=== PATIENT | female | born 1975 | race Caucasian/White ===

== ENCOUNTER 2017-06-08 08:18 | Emergency (ER) | payer OTHER ==
[~2017-06-08 08:18] MED LIST: ASPI-COR81 M1 PO; AUGMENTIN 875-875 MG PO; CALAN,ISOPTIN80 MG; CLARITIN10 MG PO; DEXALONE30 MG; EFFEXOR XR75 M1 PO; Lortab 5/500 501 TAB PO; Motrin,Rufen800 MG PO; PERCOCET 325 MG1 TA5 PO; PROTONIX20 MG PO; PROVENTIL0.09 MG/AC IH; ULTRAM50 MG PO; VICODIN 5/500 505 MG PO; XANAX0.5 MG PO; ZITHROMAX Z PA250 MG PO
[2017-06-08 09:01] LABS: BASO # 0.1 10*3/uL (0.0-0.1); BASO % 0.4 % (0.0-1.0); EOS # 0.2 10*3/uL (0.0-0.4); EOS % 1.5 % (1.0-4.0); HEMATOCRIT 38.9 % (37.0-47.0); HEMOGLOBIN 12.5 g/dl (12.0-16.0); LYMPH # 2.3 10*3/uL (1.3-4.4); LYMPH % 17.1 % (27.0-41.0); MEAN CORPUSCULAR HGB 28.9 pg (27.0-31.0); MEAN CORPUSCULAR HGB CONC 32.1 g/dl (33.0-37.0); MEAN PLATELET VOLUME 9.5 fl (9.6-12.3); MONO # 0.7 10*3/uL (0.1-1.0); MONO % 5.1 % (3.0-9.0); NEUT # 10.1 10*3/uL (2.3-7.9); NEUT % 74.6 % (47.0-73.0); PLATELET COUNT AUTOMATED 280 10*3/uL (130-400); RED BLOOD COUNT 4.32 10*6/uL (4.10-5.10); RED CELL DISTRI WIDTH 14.1 % (0-14.5); WHITE BLOOD COUNT 13.6 10*3/uL (4.8-10.8)
[2017-06-08 09:13] LABS: ACT PARTIAL THROMBO TIME 23.3 SECONDS (20.8-31.5)
[2017-06-08 09:20] VITALS: BP 137/70
[2017-06-08 09:23] LABS: ALKALINE PHOSPHATASE 79 U/L (45-117); BUN 11 mg/dl (7-24); CHLORIDE 104 mmol/L (98-107); CREATININE 0.72 mg/dL (0.55-1.02); POTASSIUM 4.7 mmol/L (3.5-5.1); SGOT/AST 47 IU/L (3-35); SGPT/ALT 44 U/L (12-78); SODIUM 139 mmol/L (136-145); TOTAL PROTEIN 7.5 gm/dL (6.4-8.2)
[2017-06-08 09:33] LABS: BETA-HCG, QUANT < 1.0 mIU/mL (1-3); ETHYL ALCOHOL < 3.0 mg/dl (<3); TROPONIN I < 0.015 ng/ml (<0.045)
== END 2017-06-08 09:46 | disposition short-term general hospital (02) ==
LOC: ED 08:18
PROVIDERS: Internal Medicine
DX: I63.9 Cerebral infarction, unspecified (principal); E11.9 Type 2 diabetes mellitus without complications; Z79.899 Other long term (current) drug therapy; Z79.82 Long term (current) use of aspirin; Z88.6 Allergy status to analgesic agent; Z88.5 Allergy status to narcotic agent

== ENCOUNTER → 2017-09-09 | Outpatient (CLI) | payer OTHER ==
[2017-09-09 12:09] LABS: HEMATOCRIT 39.3 % (37.0-47.0); HEMOGLOBIN 12.6 g/dl (12.0-16.0); MEAN CELL VOLUME 89.7 fl (81.0-99.0); MEAN CORPUSCULAR HGB 28.8 pg (27.0-31.0); MEAN CORPUSCULAR HGB CONC 32.1 g/dl (33.0-37.0); MEAN PLATELET VOLUME 9.5 fl (9.6-12.3); RED BLOOD COUNT 4.38 10*6/uL (4.10-5.10); RED CELL DISTRI WIDTH 14.1 % (0-14.5); WHITE BLOOD COUNT 11.7 10*3/uL (4.8-10.8)
[2017-09-09 12:34] LABS: BUN 11 mg/dl (7-24); CHLORIDE 102 mmol/L (98-107); CREATININE 0.71 mg/dL (0.55-1.02); POTASSIUM 4.2 mmol/L (3.5-5.1); SODIUM 140 mmol/L (136-145)
[2017-09-09 12:36] LABS: ACT PARTIAL THROMBO TIME 23.2 SECONDS (20.8-31.5)
[2017-09-09 12:44] LABS: BILIRUBIN NEGATIVE (NEGATIVE); BLOOD NEGATIVE (NEGATIVE); CLARITY CLEAR (CLEAR); COLOR YELLOW (YELLOW); GLUCOSE NEGATIVE (NEGATIVE); KETONE NEGATIVE (NEGATIVE); LEUKO ESTERASE NEGATIVE (NEGATIVE); NITRITE NEGATIVE (NEGATIVE); SPECIFIC GRAVITY 1.015 (1.005-1.030); UROBILINOGEN 0.2 E.U./dl (0.2-1.0)
[2017-09-09 13:01] LABS: BACTERIA 1+; EPITHELIAL CELLS 21-30; MUCOUS 2+; RBC 0-2 rbc/hpf (0-2)
== END | disposition home or self-care (01) ==
LOC: LAB 11:15
PROVIDERS: Internal Medicine Interventional Cardiology
DX: Z01.818 Encounter for other preprocedural examination (principal); I63.9 Cerebral infarction, unspecified; Q21.1 Atrial septal defect

== ENCOUNTER 2017-10-14 11:48 | Emergency (ER) | payer OTHER ==
[~2017-10-14] VITALS: Ht 167.6 cm; Wt 118.8 kg
[2017-10-14 12:25] VITALS: BP 124/71
[2017-10-14 12:33] LABS: BASO # 0.1 10*3/uL (0.0-0.1); BASO % 0.6 % (0.0-1.0); EOS # 0.2 10*3/uL (0.0-0.4); EOS % 1.6 % (1.0-4.0); HEMOGLOBIN 13.6 g/dl (12.0-16.0); LYMPH # 2.7 10*3/uL (1.3-4.4); LYMPH % 18.9 % (27.0-41.0); MEAN CELL VOLUME 88.6 fl (81.0-99.0); MEAN CORPUSCULAR HGB 28.7 pg (27.0-31.0); MEAN CORPUSCULAR HGB CONC 32.4 g/dl (33.0-37.0); MEAN PLATELET VOLUME 9.4 fl (9.6-12.3); MONO # 0.6 10*3/uL (0.1-1.0); MONO % 4.5 % (3.0-9.0); NEUT # 10.5 10*3/uL (2.3-7.9); NEUT % 72.9 % (47.0-73.0); PLATELET COUNT AUTOMATED 315 10*3/uL (130-400); RED BLOOD COUNT 4.74 10*6/uL (4.10-5.10); RED CELL DISTRI WIDTH 13.8 % (0-14.5); WHITE BLOOD COUNT 14.3 10*3/uL (4.8-10.8)
[2017-10-14] MEDS ORDERED: NYSTATIN CREAM15 GM T (12:43)
== END 2017-10-14 12:48 | disposition home or self-care (01) ==
LOC: ED 11:48
PROVIDERS: Physician Assistant
DX: L30.4 Erythema intertrigo (principal); Z79.899 Other long term (current) drug therapy; Z79.82 Long term (current) use of aspirin; Z88.6 Allergy status to analgesic agent; Z88.5 Allergy status to narcotic agent; Z88.8 Allergy status to other drugs, medicaments and biological substances

== ENCOUNTER 2019-06-10 09:38 | Emergency (ER) | payer BC ==
[~2019-06-10] VITALS: Ht 167.6 cm; Wt 108.0 kg
[~2019-06-10 09:38] MED LIST changes: +NYSTATIN CREAM15 GM T
[2019-06-10 09:41] VITALS: BP 149/75
[2019-06-10] MEDS ORDERED: XOPENEX HFA15 GM PO (10:54)
[2019-06-10] MEDS ORDERED: PREDNISONE50 MG PO (10:54)
== END 2019-06-10 11:04 | disposition home or self-care (01) ==
LOC: ED 09:38
DX: J45.901 Unspecified asthma with (acute) exacerbation (principal); Z79.899 Other long term (current) drug therapy; Z79.82 Long term (current) use of aspirin; Z88.5 Allergy status to narcotic agent; Z88.6 Allergy status to analgesic agent

== ENCOUNTER 2019-06-13 16:20 | Inpatient (IN) | payer BC ==
[~2019-06-13] VITALS: Ht 167.6 cm; Wt 112.1 kg
[~2019-06-13 16:20] MED LIST changes: +PREDNISONE50 MG PO; +XOPENEX HFA15 GM PO
[2019-06-13 16:21] VITALS: BP 167/79
[2019-06-13 16:49] LABS: BASO % 0.2 % (0.0-1.0); EOS # 0.1 10*3/uL (0.0-0.4); EOS % 0.7 % (1.0-4.0); HEMATOCRIT 36.1 % (37.0-47.0); HEMOGLOBIN 11.5 g/dl (12.0-16.0); LYMPH # 1.2 10*3/uL (1.3-4.4); LYMPH % 9.1 % (27.0-41.0); MEAN CELL VOLUME 92.6 fl (81.0-99.0); MEAN CORPUSCULAR HGB 29.5 pg (27.0-31.0); MEAN CORPUSCULAR HGB CONC 31.9 g/dl (33.0-37.0); MEAN PLATELET VOLUME 9.6 fl (9.6-12.3); MONO # 0.5 10*3/uL (0.1-1.0); NEUT # 11.2 10*3/uL (2.3-7.9); NEUT % 84.4 % (47.0-73.0); PLATELET COUNT AUTOMATED 240 10*3/uL (130-400); RED CELL DISTRI WIDTH 13.5 % (0-14.5); WHITE BLOOD COUNT 13.2 10*3/uL (4.8-10.8)
[2019-06-13 17:07] LABS: ALBUMIN 3.3 gm/dl (3.1-4.5); ALKALINE PHOSPHATASE 114 U/L (45-117); BUN 18 mg/dl (7-24); CHLORIDE 106 mmol/L (98-107); CREATININE 0.85 mg/dL (0.55-1.02); LIPASE 87 U/L (73-393); POTASSIUM 3.6 mmol/L (3.5-5.1); SGOT/AST 142 IU/L (3-35); SGPT/ALT 87 U/L (12-78); SODIUM 138 mmol/L (136-145); TOTAL PROTEIN 7.2 gm/dL (6.4-8.2)
[2019-06-13 17:09] LABS: TROPONIN I < 0.015 ng/ml (<0.045)
[2019-06-13] MEDS ORDERED: SINGULAIR10 M1 PO (18:31)
[2019-06-13 18:40] VITALS: BP 158/70
[2019-06-13] MEDS ORDERED: XOPENEX HFA15 GM INH (18:52)
[2019-06-13] MEDS ORDERED: BREO ELLIPTA 21 EACH INH (18:53)
[2019-06-13 18:55] VITALS: BP 152/72
--- NOTE | 2019-06-13 18:55 | NUR ---
A 44, admitted to 4E, under the services of DEANNA Sanchez DO with a diagnosis of SEPSIS AND PNEUMONITIS. Chief complaint is COUGH X3 DAYS. Patient arrived via stretcher from ER. Monitor applied. Initial assessment completed. Vital signs taken and recorded. DEANNA SANCHEZ DO notified of admission to the unit. Orders received. See assessment for past medical history, medications and allergies. Patient and/or family oriented to unit. [facility] visitation policy reviewed. Clothing/patient valuable form completed. RADHA CHILDS
[2019-06-13] MEDS ORDERED: IPRATROPIU0.2 MG/1 M NEB (19:01)
[2019-06-13] MEDS ORDERED: ALEVE220 M1 PO (19:05)
[2019-06-13 19:17] VITALS: BP 152/72
--- NOTE | 2019-06-13 19:17 | NUR ---
UNABLE TO COMPLETE ADMISSION ASSESSMENT, PASSED ON TO NEXT RN.
[2019-06-13 20:00] VITALS: BP 137/69
--- NOTE | 2019-06-13 20:00 | NUR ---
Pt instructed on use of flutter valve. Encouraged self use. 94% on 3L NC.
--- NOTE | 2019-06-13 20:44 | NUR ---
PATIENT IS AAOX3 RESTING IN BED WITH EASY AND REGULAR RESPERS ON 4L O2 VIA NC. ASSESSMENT IS COMPLETE WITH NO S/S OF DISTRESS OR C/O NOTED AT THIS TIME. BED IS LOW, LOCKED, AND CALL LIGHT IS WITHIN REACH. CALL PLACED TO DR. CEE REGARDING MED REC. WILL CONTINUE TO MONITOR, SEE SHIFT ASSESSMENT.
[2019-06-14] VITALS: BP 138/75
--- NOTE | 2019-06-14 04:49 | NUR ---
24 HR. CHART CHECK COMPLETE.
--- NOTE | 2019-06-14 06:12 | NUR ---
PATIENT RESTED WITH NO S/S OF DISTRESS NOTED ON ROOM AIR ALL NIGHT. CALL LIGHT IS WITHIN REACH.
--- NOTE | 2019-06-14 06:17 | NUR ---
CONSULT COMPLETE WITH DR. PRUITT, NO NEW ORDERS RECIEVED AT THIS TIME.
[2019-06-14 06:52] LABS: BASO % 0.2 % (0.0-1.0); HEMATOCRIT 33.8 % (37.0-47.0); HEMOGLOBIN 10.8 g/dl (12.0-16.0); LYMPH # 1.1 10*3/uL (1.3-4.4); LYMPH % 10.3 % (27.0-41.0); MEAN CELL VOLUME 91.6 fl (81.0-99.0); MEAN CORPUSCULAR HGB 29.3 pg (27.0-31.0); MEAN PLATELET VOLUME 9.9 fl (9.6-12.3); MONO # 0.2 10*3/uL (0.1-1.0); MONO % 1.8 % (3.0-9.0); NEUT # 8.7 10*3/uL (2.3-7.9); NEUT % 85.4 % (47.0-73.0); PLATELET COUNT AUTOMATED 232 10*3/uL (130-400); RED BLOOD COUNT 3.69 10*6/uL (4.10-5.10); RED CELL DISTRI WIDTH 13.5 % (0-14.5); WHITE BLOOD COUNT 10.2 10*3/uL (4.8-10.8)
[2019-06-14 07:13] LABS: ALBUMIN 3.1 gm/dl (3.1-4.5); BUN 16 mg/dl (7-24); CHLORIDE 108 mmol/L (98-107); CHOLESTEROL 221 mg/dL (<200); CREATININE 0.79 mg/dL (0.55-1.02); POTASSIUM 3.9 mmol/L (3.5-5.1); SGOT/AST 78 IU/L (3-35); SGPT/ALT 85 U/L (12-78); SODIUM 139 mmol/L (136-145)
[2019-06-14 07:15] LABS: ACT PARTIAL THROMBO TIME 25.1 SECONDS (20.0-32.1); INTERNATIONAL NORM RATIO 1.1 (2.0-3.5)
[2019-06-14 07:21] LABS: ALKALINE PHOSPHATASE 99 U/L (45-117); HDL CHOLESTEROL 31 mg/dl (40-60); LDL CHOLESTEROL 159 mg/dL (9-159); THYROID STIM HORMONE (HS) 0.571 uIU/ml (0.358-4.75); TOTAL PROTEIN 7.1 gm/dL (6.4-8.2); TRIGLYCERIDES 154 mg/dl (<150); VLDL CHOLESTEROL 31 mg/dL (6-40)
[2019-06-14 08:00] VITALS: BP 134/61
--- NOTE | 2019-06-14 08:59 | NUR ---
DR PRUITT ROUNDED AND SEEN PT.
--- NOTE | 2019-06-14 09:00 | NUR ---
Driver License Examiner in to talk to patient. Patient states lives at home with . There are few steps in the home. Physician: viji victoria [facility]acy: [facility]: none Patient's level of ADLs: INDEPENDENT Patient has working utilities: all working DME: none Follow-up physician's appointment after d/c: will be made by hospitalist nurse director upon discharge Does patient want to access PORTAL?: no Discharge plan discussed with patient, she lives at home with , is independent in adls and ambulation, she states she will return home when medically stable and denies any home needs. NICOLETTE BROWN
--- NOTE | 2019-06-14 09:41 | NUR ---
[facility] NOTIFIED THIS RN OF CRITICAL FINDINGS ON CT OF "POSSIBLE MASS COMPRESSING MAINSTEM BRONCHI" PER RADIOLOGY.DR PRUITT ALREADY AWARE OF FINDINGS AND HAS SCHEDULED [facility] FOR AM.SPOKE TO DR PRUITT AND PER HIM.
--- NOTE | 2019-06-14 10:44 | NUR ---
DR CORMIER AWARE OF NEW CONSULT. NOTIFIED BY DR VOGEL WHILE SHE ROUNDING ON FLOOR.
[2019-06-14 12:00] VITALS: BP 142/64
--- NOTE | 2019-06-14 12:11 | NUR ---
NOTIFIED DR VOGEL OF PT C/O ANXIETY. ORDER RECIEVED.
--- NOTE | 2019-06-14 13:09 | NUR ---
ATIVAN 0.5 MG GIVEN FOR C/O ANXIETY.
--- NOTE | 2019-06-14 14:28 | NUR ---
VERIFIED ALLERGY TO VICODIN/ TYLENOL WITH PT. PT STATES THAT SHE "ONLY ITCHES" AND CAN NO LONGER TAKE THE FLANK AND RIB PAIN D/T COUGHING. PT IS AWARE OF MED ORDERED PER DR VOGEL. PT STILL REQUESTING IT.NOTIFIED PHARMACIST.DR ROME.
[2019-06-14 15:41] LABS: BILIRUBIN NEGATIVE (NEGATIVE); BLOOD NEGATIVE (NEGATIVE); CLARITY CLEAR (CLEAR); COLOR YELLOW (YELLOW); GLUCOSE NEGATIVE (NEGATIVE); KETONE NEGATIVE (NEGATIVE); LEUKO ESTERASE NEGATIVE (NEGATIVE); NITRITE NEGATIVE (NEGATIVE); SPECIFIC GRAVITY 1.025 (1.005-1.030); UROBILINOGEN 0.2 E.U./dl (0.2-1.0)
[2019-06-14 15:52] LABS: BACTERIA 2+; MUCOUS TRACE
[2019-06-14 16:00] VITALS: BP 108/64; BP 130/74; BP 136/69
[2019-06-14 20:00] VITALS: BP 141/61
--- NOTE | 2019-06-14 21:58 | NUR ---
PATIENT IS REFUSING FLU SWAB, STATING "I HAVE BEEN SWABBED FOR THE FLU AT LEAST 5 TIMES TODAY." CALL LIGHT IS WITHIN REACH.
--- NOTE | 2019-06-14 22:34 | NUR ---
IV started left antecubital with #22 protective cath after 1 attempt. Site prepped with Chloroprep. Sterile dressing applied. Patient tolerated procedure well. MAURICE MEJIA
[2019-06-15] VITALS (9 sets, daily range): BP systolic 122–160; BP diastolic 58–82
[2019-06-15 06:18] LABS: BUN 22 mg/dl (7-24); CHLORIDE 109 mmol/L (98-107); CREATININE 0.78 mg/dL (0.55-1.02); POTASSIUM 3.6 mmol/L (3.5-5.1); SODIUM 141 mmol/L (136-145)
[2019-06-15 07:18] LABS: BASO % 0.2 % (0.0-1.0); EOS % 0.2 % (1.0-4.0); HEMATOCRIT 34.9 % (37.0-47.0); HEMOGLOBIN 10.7 g/dl (12.0-16.0); LYMPH # 2.7 10*3/uL (1.3-4.4); LYMPH % 21.5 % (27.0-41.0); MEAN CORPUSCULAR HGB 29.1 pg (27.0-31.0); MEAN CORPUSCULAR HGB CONC 30.7 g/dl (33.0-37.0); MEAN PLATELET VOLUME 9.9 fl (9.6-12.3); MONO # 0.8 10*3/uL (0.1-1.0); MONO % 6.4 % (3.0-9.0); NEUT # 8.8 10*3/uL (2.3-7.9); NEUT % 69.8 % (47.0-73.0); PLATELET COUNT AUTOMATED 265 10*3/uL (130-400); RED BLOOD COUNT 3.68 10*6/uL (4.10-5.10); RED CELL DISTRI WIDTH 13.8 % (0-14.5); WHITE BLOOD COUNT 12.6 10*3/uL (4.8-10.8)
[2019-06-15 07:28] LABS: MEAN CELL VOLUME 94.8 fl (81.0-99.0)
--- NOTE | 2019-06-15 08:10 | NUR ---
TO OR FOR BRONCH
--- NOTE | 2019-06-15 09:00 | NUR ---
case management visits with patient, she states she will return home when medically stable and denies any home needs, case management will follow
--- NOTE | 2019-06-15 20:00 | NUR ---
24 HOUR CHART CHECK COMPLETE.
[2019-06-16] VITALS: BP 139/63
[2019-06-16 06:42] LABS: BASO % 0.2 % (0.0-1.0); EOS # 0.1 10*3/uL (0.0-0.4); EOS % 0.5 % (1.0-4.0); HEMATOCRIT 30.6 % (37.0-47.0); HEMOGLOBIN 9.5 g/dl (12.0-16.0); LYMPH # 2.5 10*3/uL (1.3-4.4); LYMPH % 20.7 % (27.0-41.0); MEAN CELL VOLUME 95.6 fl (81.0-99.0); MEAN CORPUSCULAR HGB 29.7 pg (27.0-31.0); MEAN PLATELET VOLUME 9.5 fl (9.6-12.3); MONO # 0.7 10*3/uL (0.1-1.0); MONO % 5.6 % (3.0-9.0); NEUT # 8.6 10*3/uL (2.3-7.9); NEUT % 71.5 % (47.0-73.0); PLATELET COUNT AUTOMATED 221 10*3/uL (130-400); RED CELL DISTRI WIDTH 13.7 % (0-14.5); WHITE BLOOD COUNT 12.1 10*3/uL (4.8-10.8)
[2019-06-16 07:10] LABS: BUN 15 mg/dl (7-24); CHLORIDE 111 mmol/L (98-107); CREATININE 0.53 mg/dL (0.55-1.02); POTASSIUM 3.1 mmol/L (3.5-5.1); SODIUM 151 mmol/L (136-145)
[2019-06-16 08:00] VITALS: BP 132/84
[2019-06-16 11:48] VITALS: BP 149/68
--- NOTE | 2019-06-16 12:00 | NUR ---
MEDICATED WITH PRN PO ATIVAN FOR ANXIETY.
[2019-06-16 16:00] VITALS: BP 128/62
--- NOTE | 2019-06-16 19:30 | NUR ---
24 HOUR CHART CHECK COMPLETE.
--- NOTE | 2019-06-16 19:57 | NUR ---
PRN NORCO ADMINISTERED PRESCRIBED FOR PT C/O RT SIDED RIB CAGE PAIN D/T COUGHING RATED A 5/10 ON THE PAIN SCALE. WILL CONTINUE TO MONITOR AND REASSESS. NO OTHER COMPLAINTS AT THIS TIME. RESPIRATIONS EASY AND UNLABORED. LUNG SOUNDS CLEAR T/O DIMINISHED IN RIGHT LOWER LOBE. PT ON ROOM AIR. WILL CONTINUE TO MONITOR. CALL LIGHT IN REACH.
[2019-06-16 20:00] VITALS: BP 135/59
[2019-06-17] VITALS: BP 150/67
--- NOTE | 2019-06-17 00:10 | NUR ---
PRN ATIVAN ADMINISTERED AT THIS TIME.
--- NOTE | 2019-06-17 05:46 | NUR ---
PRN NORCO ADMINISTERED PRESCRIBED FOR PT C/O RIGHT SIDED RIBCAGE PAIN D/T COUGHING. PT RATES THE PAIN AN 8/10 ON THE PAIN SCALE. WILL CONTINUE TO MONITOR AND REASSESS.
--- NOTE | 2019-06-17 06:34 | NUR ---
PT ASLEEP AT THIS TIME. NO SIGNS OF DISCOMFORT OR DISTRESS NOTED. RESPIRATIONS EASY AND UNLABORED.
[2019-06-17 07:39] LABS: BASO % 0.2 % (0.0-1.0); EOS # 0.1 10*3/uL (0.0-0.4); HEMATOCRIT 34.6 % (37.0-47.0); HEMOGLOBIN 10.7 g/dl (12.0-16.0); LYMPH # 3.4 10*3/uL (1.3-4.4); LYMPH % 27.1 % (27.0-41.0); MEAN CELL VOLUME 94.3 fl (81.0-99.0); MEAN CORPUSCULAR HGB 29.2 pg (27.0-31.0); MEAN CORPUSCULAR HGB CONC 30.9 g/dl (33.0-37.0); MEAN PLATELET VOLUME 9.2 fl (9.6-12.3); MONO # 0.8 10*3/uL (0.1-1.0); MONO % 6.1 % (3.0-9.0); NEUT % 64.1 % (47.0-73.0); PLATELET COUNT AUTOMATED 243 10*3/uL (130-400); RED BLOOD COUNT 3.67 10*6/uL (4.10-5.10); RED CELL DISTRI WIDTH 13.6 % (0-14.5); WHITE BLOOD COUNT 12.5 10*3/uL (4.8-10.8)
[2019-06-17 08:00] VITALS: BP 151/71
[2019-06-17 08:13] LABS: CHLORIDE 108 mmol/L (98-107); POTASSIUM 3.6 mmol/L (3.5-5.1); SODIUM 140 mmol/L (136-145)
[2019-06-17 08:24] LABS: ALBUMIN 2.9 gm/dl (3.1-4.5); ALKALINE PHOSPHATASE 96 U/L (45-117); BUN 16 mg/dl (7-24); CREATININE 0.75 mg/dL (0.55-1.02); SGOT/AST 114 IU/L (3-35); SGPT/ALT 123 U/L (12-78); TOTAL PROTEIN 6.6 gm/dL (6.4-8.2)
--- NOTE | 2019-06-17 09:43 | NUR ---
MEDICATED WITH PRN PO NORCO FOR RIGHT RIB CAGE DISCOMFORT.
[2019-06-17] MEDS ORDERED: MUCINEX ER600 MG PO (10:26)
[2019-06-17] MEDS ORDERED: PREDNISONE10 MG PO (10:27)
[2019-06-17 11:09] LABS: ACID FAST SPEC PROCESSING Concentration (.)
[2019-06-17 12:00] VITALS: BP 156/86
[2019-06-17] MEDS ORDERED: LEVOFLOXACIN750 M2 PO (12:13)
[2019-06-17] MEDS ORDERED: LEVAQUIN750 M1 PO (12:49)
--- NOTE | 2019-06-17 13:29 | NUR ---
Discharge instructions reviewed with patient/family. Patient receptive and verbalizes understanding. Follow-up care arranged. Written instructions given to patient/family. PATIENT DISCHARGED TO [facility] BY WHEELCHAIR, ACCOMPANIED BY [facility], FOR TRANSPORT HOME BY PRIVATE VEHICLE WITH FAMILY. ALY HYLTON
[2019-06-19 07:07] LABS: ADENOVIRUS Negative (Negative); INFLUENZA A Negative (Negative); INFLUENZA B Negative (Negative); METAPNEUMOVIRUS Negative (Negative); PARAINFLUENZA 1 Negative (Negative); PARAINFLUENZA 2 Negative (Negative); PARAINFLUENZA 3 Negative (Negative); RHINOVIRUS Negative (Negative); RSV A Negative (Negative); RSV B Negative (Negative)
[2019-08-01 15:10] LABS: ACID FAST CULTURE Negative (.)
== END 2019-06-17 13:29 | disposition home or self-care (01) | DRG 871 ==
LOC: ED 16:20 → 4E 18:23 → EDHOLD 18:23 → 4E 18:26
PROVIDERS: Emergency Medicine; Hospitalist; Internal Medicine Critical Care Medicine; Nurse Practitioner Family; Student in an Organized Health Care Education/Training Program; ADMIT Internal Medicine
PROC: 0BCB8ZZ Extirpation of Matter from Left Lower Lobe Bronchus, Via Natural or Artificial Opening Endoscopic (ICD-10-PCS; principal; 2019-06-15)
PROC: 0BC18ZZ Extirpation of Matter from Trachea, Via Natural or Artificial Opening Endoscopic (ICD-10-PCS; principal; 2019-06-15)
PROC: 0BC88ZZ Extirpation of Matter from Left Upper Lobe Bronchus, Via Natural or Artificial Opening Endoscopic (ICD-10-PCS; principal; 2019-06-15)
PROC: 0BC68ZZ Extirpation of Matter from Right Lower Lobe Bronchus, Via Natural or Artificial Opening Endoscopic (ICD-10-PCS; principal; 2019-06-15)
PROC: 0BC78ZZ Extirpation of Matter from Left Main Bronchus, Via Natural or Artificial Opening Endoscopic (ICD-10-PCS; principal; 2019-06-15)
PROC: 0BC48ZZ Extirpation of Matter from Right Upper Lobe Bronchus, Via Natural or Artificial Opening Endoscopic (ICD-10-PCS; principal; 2019-06-15)
PROC: 0BC38ZZ Extirpation of Matter from Right Main Bronchus, Via Natural or Artificial Opening Endoscopic (ICD-10-PCS; principal; 2019-06-15)
PROC: 0BC98ZZ Extirpation of Matter from Lingula Bronchus, Via Natural or Artificial Opening Endoscopic (ICD-10-PCS; principal; 2019-06-15)
PROC: 0BC58ZZ Extirpation of Matter from Right Middle Lobe Bronchus, Via Natural or Artificial Opening Endoscopic (ICD-10-PCS; principal; 2019-06-15)
DX: A41.9 Sepsis, unspecified organism (principal); J18.8 Other pneumonia, unspecified organism; J45.41 Moderate persistent asthma with (acute) exacerbation; J98.11 Atelectasis; T17.590A Other foreign object in bronchus causing asphyxiation, initial encounter; J44.0 Chronic obstructive pulmonary disease with (acute) lower respiratory infection; J44.1 Chronic obstructive pulmonary disease with (acute) exacerbation; R74.0 Nonspecific elevation of levels of transaminase and lactic acid dehydrogenase [LDH]; D64.9 Anemia, unspecified; R73.9 Hyperglycemia, unspecified; E66.01 Morbid (severe) obesity due to excess calories; X58.XXXA Exposure to other specified factors, initial encounter; F17.210 Nicotine dependence, cigarettes, uncomplicated; R65.20 Severe sepsis without septic shock; Z88.6 Allergy status to analgesic agent; Z88.8 Allergy status to other drugs, medicaments and biological substances; Z79.82 Long term (current) use of aspirin; Z86.73 Personal history of transient ischemic attack (TIA), and cerebral infarction without residual deficits; Z83.3 Family history of diabetes mellitus; Z82.49 Family history of ischemic heart disease and other diseases of the circulatory system; Z82.3 Family history of stroke; Z80.9 Family history of malignant neoplasm, unspecified; Z79.899 Other long term (current) drug therapy; Y93.89 Activity, other specified; Y92.89 Other specified places as the place of occurrence of the external cause; Y99.8 Other external cause status

== ENCOUNTER → 2019-11-15 | Outpatient (CLI) | payer BC ==
[~2019-11-15] MED LIST changes: +ALEVE220 M1 PO; +BREO ELLIPTA 21 EACH INH; +IPRATROPIU0.2 MG/1 M NEB; +LEVAQUIN750 M1 PO; +LEVOFLOXACIN750 M2 PO; +MUCINEX ER600 MG PO; +PREDNISONE10 MG PO; +SINGULAIR10 M1 PO; +XOPENEX HFA15 GM INH
[2019-11-15 15:47] LABS: BASO # 0.1 10*3/uL (0.0-0.1); BASO % 0.5 % (0.0-1.0); EOS # 0.3 10*3/uL (0.0-0.4); EOS % 1.5 % (1.0-4.0); HEMATOCRIT 40.6 % (37.0-47.0); HEMOGLOBIN 12.6 g/dl (12.0-16.0); LYMPH # 3.6 10*3/uL (1.3-4.4); LYMPH % 21.8 % (27.0-41.0); MEAN CELL VOLUME 93.1 fl (81.0-99.0); MEAN CORPUSCULAR HGB 28.9 pg (27.0-31.0); MEAN PLATELET VOLUME 10.4 fl (9.6-12.3); MONO # 0.9 10*3/uL (0.1-1.0); MONO % 5.7 % (3.0-9.0); NEUT # 11.5 10*3/uL (2.3-7.9); NEUT % 69.7 % (47.0-73.0); PLATELET COUNT AUTOMATED 230 10*3/uL (130-400); RED BLOOD COUNT 4.36 10*6/uL (4.10-5.10); RED CELL DISTRI WIDTH 14.5 % (0-14.5); WHITE BLOOD COUNT 16.4 10*3/uL (4.8-10.8)
== END | disposition home or self-care (01) ==
LOC: LAB 14:48
PROVIDERS: Internal Medicine Critical Care Medicine
DX: Z79.899 Other long term (current) drug therapy (principal)

== ENCOUNTER 2020-01-20 13:11 | Emergency (ER) | payer BC ==
[~2020-01-20] VITALS: Ht 167.6 cm; Wt 104.3 kg
[2020-01-20 13:21] VITALS: BP 168/89
[2020-01-20] MEDS ORDERED: TRAMADOL HCL50 MG PO (15:25)
== END 2020-01-20 16:04 | disposition home or self-care (01) ==
LOC: ED 13:11
DX: S46.912A Strain of unspecified muscle, fascia and tendon at shoulder and upper arm level, left arm, initial encounter (principal); F41.9 Anxiety disorder, unspecified; F32.9 Major depressive disorder, single episode, unspecified; G43.909 Migraine, unspecified, not intractable, without status migrainosus; J45.909 Unspecified asthma, uncomplicated; Z87.891 Personal history of nicotine dependence; Z88.8 Allergy status to other drugs, medicaments and biological substances; Z79.899 Other long term (current) drug therapy; Z79.82 Long term (current) use of aspirin; W19.XXXA Unspecified fall, initial encounter; Y93.89 Activity, other specified; Y92.89 Other specified places as the place of occurrence of the external cause; Y99.8 Other external cause status

== ENCOUNTER → 2020-10-31 | Outpatient (CLI) | payer BC ==
[~2020-10-31] MED LIST changes: +TRAMADOL HCL50 MG PO
== END | disposition home or self-care (01) ==
LOC: COVID19 12:18
PROVIDERS: ATTEND Nurse Practitioner Family
DX: Z20.822 Contact with and (suspected) exposure to COVID-19 (principal)

== ENCOUNTER 2020-12-31 11:34 | Emergency (ER) | payer BC ==
[~2020-12-31] VITALS: Wt 104.3 kg
[2020-12-31 11:39] VITALS: BP 150/60
[2020-12-31 12:59] LABS: BASO % 0.3 % (0.0-1.0); LYMPH % 15.8 % (27.0-41.0); MEAN CELL VOLUME 94.1 fl (81.0-99.0); MEAN CORPUSCULAR HGB CONC 31.8 g/dl (33.0-37.0); MEAN PLATELET VOLUME 10.3 fl (9.6-12.3); MONO # 0.9 10*3/uL (0.1-1.0); MONO % 7.3 % (3.0-9.0); NEUT # 9.7 10*3/uL (2.3-7.9); NEUT % 76.1 % (47.0-73.0); PLATELET COUNT AUTOMATED 167 10*3/uL (130-400); RED BLOOD COUNT 4.04 10*6/uL (4.10-5.10); RED CELL DISTRI WIDTH 15.5 % (0-14.5); WHITE BLOOD COUNT 12.8 10*3/uL (4.8-10.8)
[2020-12-31 13:14] LABS: ALKALINE PHOSPHATASE 199 U/L (45-117); CHLORIDE 104 mmol/L (98-107); CREATININE 0.77 mg/dL (0.55-1.02); GAMMA GLUTAMYL TRANSPEPTIDASE 623 U/L (5-55); LIPASE 101 U/L (73-393); POTASSIUM 4.2 mmol/L (3.5-5.1); SGOT/AST 115 IU/L (3-35); SGPT/ALT 40 U/L (12-78); SODIUM 137 mmol/L (136-145); TOTAL PROTEIN 8.2 gm/dL (6.4-8.2)
[2020-12-31 13:25] LABS: BUN 6 mg/dl (7-24)
[2020-12-31] MEDS ORDERED: ZOFRAN4 MG PO (14:20)
== END 2020-12-31 14:24 | disposition home or self-care (01) ==
LOC: ED 11:34
PROVIDERS: Internal Medicine
DX: K81.0 Acute cholecystitis (principal); Z79.82 Long term (current) use of aspirin; Z79.899 Other long term (current) drug therapy; Z88.6 Allergy status to analgesic agent; Z88.5 Allergy status to narcotic agent

== ENCOUNTER → 2021-01-08 | Outpatient (CLI) | payer BC ==
[~2021-01-08] MED LIST changes: +ZOFRAN4 MG PO
== END | disposition home or self-care (01) ==
LOC: NM 06:56
PROVIDERS: ATTEND Surgery
DX: K21.9 Gastro-esophageal reflux disease without esophagitis (principal); R10.13 Epigastric pain

== ENCOUNTER → 2021-01-15 | Outpatient (CLI) | payer BC | END | disposition home or self-care (01) | LOC: COVID19 11:04 | PROVIDERS: ATTEND Surgery | DX: Z01.812 Encounter for preprocedural laboratory examination (principal); Z20.822 Contact with and (suspected) exposure to COVID-19 ==

== ENCOUNTER → 2021-01-19 | Day surgery (SDC) | payer BC ==
[2021-01-15 11:41] VITALS: BP 132/60
[2021-01-19] VITALS (9 sets, daily range): BP systolic 137–162; BP diastolic 59–77
[~2021-01-19] VITALS: Ht 160 cm; Wt 81.6 kg
[~2021-01-19] MED LIST changes: +CIPRO500 MG PO; +COLACE100 MG PO; +FLAGYL500 MG PO; +HYDROCODONE-AC1 EAC1 PO; +ONDANSETRON HYDR4 M1 PO
== END | disposition home or self-care (01) ==
LOC: SDC 01-15 11:00
PROVIDERS: ATTEND Surgery
DX: K81.1 Chronic cholecystitis (principal); K82.8 Other specified diseases of gallbladder; J45.909 Unspecified asthma, uncomplicated; F41.9 Anxiety disorder, unspecified; E11.9 Type 2 diabetes mellitus without complications; F32.9 Major depressive disorder, single episode, unspecified; Z79.899 Other long term (current) drug therapy; Z86.73 Personal history of transient ischemic attack (TIA), and cerebral infarction without residual deficits; Z87.891 Personal history of nicotine dependence; Z98.890 Other specified postprocedural states

== ENCOUNTER 2021-01-23 22:02 | Emergency (ER) | payer BC ==
[~2021-01-23 22:02] MED LIST changes: -CIPRO500 MG PO; -FLAGYL500 MG PO
[2021-01-23 23:01] LABS: HEMATOCRIT 45.7 % (37.0-47.0); MEAN CORPUSCULAR HGB 29.9 pg (27.0-31.0); MEAN CORPUSCULAR HGB CONC 31.5 g/dl (33.0-37.0); MEAN PLATELET VOLUME 10.7 fl (9.6-12.3); PLATELET COUNT AUTOMATED 281 10*3/uL (130-400); RED BLOOD COUNT 4.81 10*6/uL (4.10-5.10); RED CELL DISTRI WIDTH 15.3 % (0-14.5); WHITE BLOOD COUNT 24.3 10*3/uL (4.8-10.8)
[2021-01-23 23:27] LABS: BASOPHILS 1 % (0-1); BURR CELLS FEW; TOTAL CELLS COUNTED 100 #CELLS
[2021-01-23 23:28] LABS: PLATELET SUFFICIENCY NORMAL (NORMAL)
[2021-01-23 23:44] LABS: ALBUMIN 2.2 gm/dl (3.1-4.5); CREATININE 1.96 mg/dL (0.55-1.02); POTASSIUM 3.7 mmol/L (3.5-5.1); TOTAL PROTEIN 6.3 gm/dL (6.4-8.2)
[2021-01-24] VITALS: BP 127/72
[2021-01-24] MEDS ORDERED: FLAGYL500 MG PO (01:09)
[2021-01-24] MEDS ORDERED: CIPRO500 MG PO (01:09)
== END 2021-01-24 01:21 | disposition home or self-care (01) ==
LOC: ED 22:02
PROVIDERS: Internal Medicine
DX: N17.9 Acute kidney failure, unspecified (principal); N18.9 Chronic kidney disease, unspecified; D72.829 Elevated white blood cell count, unspecified; E46 Unspecified protein-calorie malnutrition; Z88.8 Allergy status to other drugs, medicaments and biological substances; Z79.899 Other long term (current) drug therapy; Z79.82 Long term (current) use of aspirin; Z98.890 Other specified postprocedural states

== ENCOUNTER 2021-02-02 14:55 | Inpatient (IN) | payer BC ==
[~2021-02-02] VITALS: Ht 167.6 cm; Wt 94.9 kg
[~2021-02-02 14:55] MED LIST changes: +CIPRO500 MG PO; +FLAGYL500 MG PO
[2021-02-02 16:15] LABS: HEMATOCRIT 48.3 % (37.0-47.0); MEAN CELL VOLUME 89.3 fl (81.0-99.0); MEAN CORPUSCULAR HGB 30.5 pg (27.0-31.0); MEAN CORPUSCULAR HGB CONC 34.2 g/dl (33.0-37.0); MEAN PLATELET VOLUME 9.7 fl (9.6-12.3); PLATELET COUNT AUTOMATED 401 10*3/uL (130-400); RED BLOOD COUNT 5.41 10*6/uL (4.10-5.10); RED CELL DISTRI WIDTH 14.6 % (0-14.5); WHITE BLOOD COUNT 31.4 10*3/uL (4.8-10.8)
[2021-02-02 16:25] LABS: ACT PARTIAL THROMBO TIME 33.5 SECONDS (20.0-32.1); INTERNATIONAL NORM RATIO 1.4 (2.0-3.5)
[2021-02-02 16:30] LABS: ALBUMIN 2.7 gm/dl (3.1-4.5); CREATININE 5.69 mg/dL (0.55-1.02); POTASSIUM 3.9 mmol/L (3.5-5.1); TOTAL PROTEIN 7.5 gm/dL (6.4-8.2)
[2021-02-02 16:34] LABS: PLATELET SUFFICIENCY NORMAL (NORMAL); TOTAL CELLS COUNTED 100 #CELLS
[2021-02-02 16:37] LABS: BURR CELLS FEW
[2021-02-02] MEDS ORDERED: PRILOSEC20 M1 PO (17:39)
[2021-02-02 20:00] VITALS: BP 139/65
[2021-02-02 21:16] LABS: BILIRUBIN Negative (Negative); BLOOD Negative (Negative); CLARITY Cloudy (Clear); COLOR Yellow (Yellow); GLUCOSE Negative (Negative); KETONE Trace (Negative); LEUKO ESTERASE Negative (Negative); NITRITE Negative (Negative); SPECIFIC GRAVITY 1.015 (1.001-1.030)
[2021-02-02 21:31] LABS: BACTERIA 1+; EPITHELIAL CELLS 51-100; MUCOUS 2+; URINE CHLORIDE, RANDOM < 10 mmol/L
[2021-02-02] MEDS ORDERED: TRAD5TAB1 PO (22:22)
[2021-02-03] VITALS: BP 125/54
[2021-02-03 06:18] LABS: HEMATOCRIT 42.8 % (37.0-47.0); MEAN CELL VOLUME 90.5 fl (81.0-99.0); MEAN CORPUSCULAR HGB 29.8 pg (27.0-31.0); MEAN CORPUSCULAR HGB CONC 32.9 g/dl (33.0-37.0); MEAN PLATELET VOLUME 10.2 fl (9.6-12.3); PLATELET COUNT AUTOMATED 329 10*3/uL (130-400); RED BLOOD COUNT 4.73 10*6/uL (4.10-5.10); RED CELL DISTRI WIDTH 14.5 % (0-14.5); WHITE BLOOD COUNT 25.6 10*3/uL (4.8-10.8)
[2021-02-03 06:26] LABS: POTASSIUM 3.4 mmol/L (3.5-5.1)
[2021-02-03 06:38] LABS: ALBUMIN 2.3 gm/dl (3.1-4.5); CREATININE 4.22 mg/dL (0.55-1.02); FREE T4 0.93 ng/dl (0.76-1.46); THYROID STIM HORMONE (HS) 3.91 uIU/ml (0.358-4.75); TOTAL PROTEIN 6.1 gm/dL (6.4-8.2)
[2021-02-03 06:56] LABS: VITAMIN D, 25-HYDROXY 21.5 ng/mL (30-100)
[2021-02-03 07:02] LABS: BURR CELLS FEW; PLATELET SUFFICIENCY NORMAL (NORMAL); POLYCHROMASIA SLIGHT; SCHISTOCYTES FEW; TOTAL CELLS COUNTED 100 #CELLS
[2021-02-03 08:00] VITALS: BP 124/57
[2021-02-03 12:00] VITALS: BP 125/53
[2021-02-03 16:00] VITALS: BP 118/60
[2021-02-03 20:00] VITALS: BP 116/62
[2021-02-04] VITALS: BP 117/59
[2021-02-04 06:14] LABS: CREATININE 2.21 mg/dL (0.55-1.02); POTASSIUM 3.6 mmol/L (3.5-5.1); TOTAL PROTEIN 5.5 gm/dL (6.4-8.2)
[2021-02-04 06:20] LABS: HEMATOCRIT 42.1 % (37.0-47.0); MEAN CELL VOLUME 90.9 fl (81.0-99.0); PLATELET COUNT AUTOMATED 265 10*3/uL (130-400); RED BLOOD COUNT 4.63 10*6/uL (4.10-5.10); RED CELL DISTRI WIDTH 14.6 % (0-14.5); WHITE BLOOD COUNT 16.4 10*3/uL (4.8-10.8)
[2021-02-04 07:13] LABS: BASOPHILS 2 % (0-1); BURR CELLS FEW; PLATELET SUFFICIENCY NORMAL (NORMAL); POLYCHROMASIA SLIGHT; TOTAL CELLS COUNTED 100 #CELLS
[2021-02-04 08:00] VITALS: BP 113/58
[2021-02-04 12:00] VITALS: BP 109/56
[2021-02-04 16:00] VITALS: BP 111/53
[2021-02-04 20:00] VITALS: BP 105/72
[2021-02-05] VITALS: BP 111/52
[2021-02-05 06:15] LABS: INTERNATIONAL NORM RATIO 1.2 (2.0-3.5)
[2021-02-05 06:21] LABS: BASO # 0.1 10*3/uL (0.0-0.1); BASO % 0.4 % (0.0-1.0); HEMATOCRIT 40.9 % (37.0-47.0); LYMPH # 3.6 10*3/uL (1.3-4.4); LYMPH % 26.1 % (27.0-41.0); MEAN CELL VOLUME 89.9 fl (81.0-99.0); MEAN CORPUSCULAR HGB 29.9 pg (27.0-31.0); MEAN CORPUSCULAR HGB CONC 33.3 g/dl (33.0-37.0); MEAN PLATELET VOLUME 10.3 fl (9.6-12.3); MONO # 1.4 10*3/uL (0.1-1.0); MONO % 10.3 % (3.0-9.0); NEUT # 8.6 10*3/uL (2.3-7.9); NEUT % 62.7 % (47.0-73.0); PLATELET COUNT AUTOMATED 250 10*3/uL (130-400); RED BLOOD COUNT 4.55 10*6/uL (4.10-5.10); RED CELL DISTRI WIDTH 14.4 % (0-14.5); WHITE BLOOD COUNT 13.7 10*3/uL (4.8-10.8)
[2021-02-05 06:30] LABS: ALBUMIN 1.8 gm/dl (3.1-4.5)
[2021-02-05 06:34] LABS: CREATININE 1.25 mg/dL (0.55-1.02); TOTAL PROTEIN 5.5 gm/dL (6.4-8.2)
[2021-02-05 06:36] LABS: POTASSIUM 3.9 mmol/L (3.5-5.1)
[2021-02-05 08:00] VITALS: BP 119/67
[2021-02-05 12:00] VITALS: BP 128/52
[2021-02-05 16:00] VITALS: BP 106/59
[2021-02-05 20:00] VITALS: BP 108/55
[2021-02-06] VITALS: BP 113/51
[2021-02-06 06:06] LABS: BASO # 0.1 10*3/uL (0.0-0.1); BASO % 0.4 % (0.0-1.0); HEMATOCRIT 44.3 % (37.0-47.0); LYMPH % 22.7 % (27.0-41.0); MEAN CELL VOLUME 91.2 fl (81.0-99.0); MEAN PLATELET VOLUME 9.7 fl (9.6-12.3); MONO # 1.2 10*3/uL (0.1-1.0); NEUT # 8.9 10*3/uL (2.3-7.9); NEUT % 67.5 % (47.0-73.0); PLATELET COUNT AUTOMATED 229 10*3/uL (130-400); RED BLOOD COUNT 4.86 10*6/uL (4.10-5.10); RED CELL DISTRI WIDTH 14.8 % (0-14.5); WHITE BLOOD COUNT 13.2 10*3/uL (4.8-10.8)
[2021-02-06 06:28] LABS: CHLORIDE 105 mmol/L (98-107); CREATININE 0.87 mg/dL (0.55-1.02); POTASSIUM 4.5 mmol/L (3.5-5.1); SGOT/AST 87 IU/L (3-35); SGPT/ALT 34 U/L (12-78); SODIUM 132 mmol/L (136-145)
[2021-02-06 06:29] LABS: ALKALINE PHOSPHATASE 133 U/L (45-117); TOTAL PROTEIN 5.6 gm/dL (6.4-8.2)
[2021-02-06 06:45] LABS: BUN 31 mg/dl (7-24)
[2021-02-06 08:00] VITALS: BP 120/64
[2021-02-06 12:00] VITALS: BP 105/56
[2021-02-06 16:00] VITALS: BP 108/54
[2021-02-06 17:45] LABS: BODY FLUID WBC 654 /uL
[2021-02-06 19:35] LABS: BF LYMPHOCYTES 58 %; BF MACROPHAGES 26 %; BF MESOTHELIALS 6 %; BF NEUTROPHILS 10 %
[2021-02-06 20:00] VITALS: BP 113/57
[2021-02-07] VITALS: BP 111/60
[2021-02-07 05:59] LABS: BASO # 0.1 10*3/uL (0.0-0.1); BASO % 0.4 % (0.0-1.0); HEMATOCRIT 41.4 % (37.0-47.0); LYMPH # 3.5 10*3/uL (1.3-4.4); LYMPH % 24.5 % (27.0-41.0); MEAN CELL VOLUME 92.4 fl (81.0-99.0); MEAN CORPUSCULAR HGB 29.9 pg (27.0-31.0); MEAN CORPUSCULAR HGB CONC 32.4 g/dl (33.0-37.0); MEAN PLATELET VOLUME 9.7 fl (9.6-12.3); MONO # 1.4 10*3/uL (0.1-1.0); NEUT # 9.2 10*3/uL (2.3-7.9); NEUT % 64.7 % (47.0-73.0); PLATELET COUNT AUTOMATED 218 10*3/uL (130-400); RED BLOOD COUNT 4.48 10*6/uL (4.10-5.10); RED CELL DISTRI WIDTH 14.7 % (0-14.5); WHITE BLOOD COUNT 14.2 10*3/uL (4.8-10.8)
[2021-02-07 06:11] LABS: ALBUMIN 1.7 gm/dl (3.1-4.5); ALKALINE PHOSPHATASE 140 U/L (45-117); BUN 25 mg/dl (7-24); CHLORIDE 105 mmol/L (98-107); CREATININE 0.97 mg/dL (0.55-1.02); POTASSIUM 4.1 mmol/L (3.5-5.1); SGOT/AST 74 IU/L (3-35); SGPT/ALT 32 U/L (12-78); SODIUM 133 mmol/L (136-145); TOTAL PROTEIN 5.3 gm/dL (6.4-8.2)
[2021-02-07 08:49] VITALS: BP 121/61
[2021-02-07 11:46] VITALS: BP 121/68
[2021-02-07] MEDS ORDERED: VITAMIN D350 MC2 PO (12:55)
[2021-02-07] MEDS ORDERED: TRAMADOL HCL50 MG PO (12:55)
[2021-02-07 16:07] LABS: ACID FAST SPEC PROCESSING Direct Inoculation (.)
== END 2021-02-07 14:33 | disposition home or self-care (01) | DRG 871 ==
LOC: 4E 14:55
PROVIDERS: Internal Medicine; ADMIT Internal Medicine; ATTEND Internal Medicine
DX: A41.9 Sepsis, unspecified organism (principal); K65.2 Spontaneous bacterial peritonitis; N17.0 Acute kidney failure with tubular necrosis; E43 Unspecified severe protein-calorie malnutrition; D68.9 Coagulation defect, unspecified; E87.1 Hypo-osmolality and hyponatremia; R34 Anuria and oliguria; K70.31 Alcoholic cirrhosis of liver with ascites; D47.3 Essential (hemorrhagic) thrombocythemia; E86.0 Dehydration; R65.20 Severe sepsis without septic shock; R74.01 Elevation of levels of liver transaminase levels; E87.6 Hypokalemia; E87.8 Other disorders of electrolyte and fluid balance, not elsewhere classified; E83.39 Other disorders of phosphorus metabolism; E83.41 Hypermagnesemia; T39.395A Adverse effect of other nonsteroidal anti-inflammatory drugs [NSAID], initial encounter; E11.65 Type 2 diabetes mellitus with hyperglycemia; J45.909 Unspecified asthma, uncomplicated; Z68.33 Body mass index [BMI] 33.0-33.9, adult; Z90.49 Acquired absence of other specified parts of digestive tract; Z86.73 Personal history of transient ischemic attack (TIA), and cerebral infarction without residual deficits; Z98.51 Tubal ligation status; Z87.891 Personal history of nicotine dependence; Z83.3 Family history of diabetes mellitus; Z80.9 Family history of malignant neoplasm, unspecified; Z88.6 Allergy status to analgesic agent; Z88.8 Allergy status to other drugs, medicaments and biological substances; Z79.899 Other long term (current) drug therapy; Y92.89 Other specified places as the place of occurrence of the external cause

== ENCOUNTER → 2021-02-09 | Outpatient (CLI) | payer BC ==
[~2021-02-09] MED LIST changes: +PRILOSEC20 M1 PO; +TRAD5TAB1 PO; +VITAMIN D350 MC2 PO
[2021-02-09 12:14] LABS: BASO % 0.2 % (0.0-1.0); HEMATOCRIT 43.1 % (37.0-47.0); LYMPH # 2.4 10*3/uL (1.3-4.4); LYMPH % 17.1 % (27.0-41.0); MEAN CELL VOLUME 94.7 fl (81.0-99.0); MEAN CORPUSCULAR HGB 30.1 pg (27.0-31.0); MEAN CORPUSCULAR HGB CONC 31.8 g/dl (33.0-37.0); MEAN PLATELET VOLUME 9.8 fl (9.6-12.3); MONO # 1.1 10*3/uL (0.1-1.0); MONO % 8.1 % (3.0-9.0); NEUT # 10.2 10*3/uL (2.3-7.9); NEUT % 73.5 % (47.0-73.0); PLATELET COUNT AUTOMATED 210 10*3/uL (130-400); RED BLOOD COUNT 4.55 10*6/uL (4.10-5.10); RED CELL DISTRI WIDTH 14.6 % (0-14.5); WHITE BLOOD COUNT 13.9 10*3/uL (4.8-10.8)
[2021-02-09 12:43] LABS: POTASSIUM 5.1 mmol/L (3.5-5.1)
[2021-02-09 12:56] LABS: ALBUMIN 2.2 gm/dl (3.1-4.5); CREATININE 1.69 mg/dL (0.55-1.02); TOTAL PROTEIN 6.4 gm/dL (6.4-8.2)
== END | disposition home or self-care (01) ==
LOC: LAB 11:35
PROVIDERS: ATTEND Internal Medicine
DX: N17.0 Acute kidney failure with tubular necrosis (principal); R10.9 Unspecified abdominal pain; K74.60 Unspecified cirrhosis of liver

== ENCOUNTER → 2021-03-02 | Outpatient (CLI) | payer BC | END | disposition home or self-care (01) | LOC: US 09:00 | PROVIDERS: ATTEND Physician Assistant Medical | DX: K74.60 Unspecified cirrhosis of liver (principal); R16.1 Splenomegaly, not elsewhere classified; R18.8 Other ascites; Z90.49 Acquired absence of other specified parts of digestive tract ==

== ENCOUNTER → 2021-09-02 | Outpatient (CLI) | payer BC | END | disposition home or self-care (01) | LOC: COVID19 15:36 | PROVIDERS: ATTEND Internal Medicine | DX: Z20.822 Contact with and (suspected) exposure to COVID-19 (principal) ==

== ENCOUNTER 2023-05-04 18:47 | Emergency (ER) | payer BC ==
[~2023-05-04] VITALS: Ht 165.1 cm; Wt 104.3 kg
[2023-05-04] MEDS ORDERED: PROTONIX20 MG PO (19:06)
[2023-05-04] MEDS ORDERED: CYMBALTA30 MG PO (19:07)
[2023-05-04] MEDS ORDERED: COREG3.125 MG PO (19:07)
[2023-05-04] MEDS ORDERED: LASIX40 MG PO (19:08)
[2023-05-04] MEDS ORDERED: SPIRONOLACTONE50 M1 PO (19:08)
[2023-05-04] MEDS ORDERED: LIPITOR20 MG PO (19:08)
[2023-05-04] MEDS ORDERED: FASENRA PE30 MG/1 ML SQ (19:09)
[2023-05-04 22:15] VITALS: BP 126/56
== END 2023-05-04 22:40 | disposition home or self-care (01) ==
LOC: ED 18:47
DX: S92.352A Displaced fracture of fifth metatarsal bone, left foot, initial encounter for closed fracture (principal); Z88.6 Allergy status to analgesic agent; Z88.8 Allergy status to other drugs, medicaments and biological substances; Z79.899 Other long term (current) drug therapy; Z90.49 Acquired absence of other specified parts of digestive tract; X50.1XXA Overexertion from prolonged static or awkward postures, initial encounter; Y93.01 Activity, walking, marching and hiking; Y92.89 Other specified places as the place of occurrence of the external cause; Y99.8 Other external cause status; Z98.51 Tubal ligation status